=== PATIENT | male | born 1990 | race American Indian/Alaskan Native ===

== ENCOUNTER 2018-09-30 21:03 | Emergency (ER) | payer SELFPAY ==
[2018-09-30] MEDS ORDERED: ADRENALIN ONE (21:05)
--- NOTE | 2018-09-30 21:26 | Emergency Department Report ---
ED CPR HPI - General Chief Complaint: Cardiac Arrest/CPR Stated Complaint: CARDIAC ARREST Time Seen by Provider: 09/30/18 21:17 Limitations: Altered Mental Status, Other (patient distress) - History of Present Illness Initial Comments: EMS reports called for cardiac arrest. Reports patient has hx of LVAD. Family reports to EMS patient was attempting to switch his battery to the wall socket and collapsed. EMS called. 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 No signs of trauma. - Related Data Previous Rx's Medication Instructions Recorded Last Taken Type Ibuprofen [Motrin 800 MG tab] 800 mg PO Q8HR PRN #30 tablet 07/02/15 Unknown Rx Allergies Allergy/AdvReac Type Severity Reaction Status Date / Time No Known Allergies Allergy Verified 07/02/15 01:57 ED Review of Systems ROS: Stated complaint: CARDIAC ARREST Other details as noted in HPI Comment: Unobtainable due to pts medical conditions ED Past Medical Hx - Social History Smoking Status: Never Smoker Substance Use Type: None - Medications Home Medications: Home Medications Medication Instructions Recorded Confirmed Last Taken Type Ibuprofen [Motrin 800 MG tab] 800 mg PO Q8HR PRN #30 tablet 07/02/15 Unknown Rx ED Physical Exam - Other Other exam information: GENERAL: Patient in severe acute distress HEAD: Normocephalic, atraumatic EYES: Pupils fixed dilated HEART: No cardiac activity identified on transthoracic ultrasound. Asystole on the monitor. LUNGS: Bilateral breath sounds, intubated ABDOMEN: soft nontender. cord for internal device exiting right abdomen without surrounding erythema, discharge, or bleeding. MUSCULOSKELETAL: no deformity NEUROLOGIC: GCS 3 SKIN: Skin is warm and dry ED Medical Decision Making - Medical Decision Making Patient arrived cardiac arrest. Prolonged downtime over an hour. Resuscitation per ACLS guidelines. CPR continued in the ER. No ROSC. Time of 2109. Critical Care Time: Yes Critical care time in (mins) excluding proc time.: 35 Critical care attestation.: If time is entered above; I have spent that time in minutes in the direct care of this critically ill patient, excluding procedure time. 35 ED Disposition Clinical Impression: Cardiac arrest Disposition: DC-20 Is pt being admited?: No Condition: Stable
== END 2018-10-01 04:00 ==
LOC: ED 21:03
DX: I46.9 Cardiac arrest, cause unspecified (principal)
CPT/HCPCS: 82962; 92950; 99291; J0171